=== PATIENT | female | born 2000 | race Caucasian/White ===

== ENCOUNTER 2022-07-27 13:10 | Outpatient (CLI) | payer BC, SELFPAY ==
--- NOTE | ~2022-07-27 | XR_ITS ---
EXAMINATION: XR sinus min 3V INDICATION: Chronic nasal congestion TECHNIQUE: Four views of the paranasal sinuses are obtained on five radiographs COMPARISON: None available FINDINGS: The paranasal sinuses are well pneumatized. There is mild rightward deviation of the nasal septum. There appears to be minimal opacification of the right maxillary sinus. The facial bones are unremarkable. IMPRESSION: 1. Possible right maxillary sinusitis. Consider further evaluation with sinus CT if there is high hig h suspicion for clinically significant sinusitis. Reviewed, dictated and finalized at location L. TORCH OPERATOR IMPRESSION: 1. Possible right maxillary sinusitis. Consider further evaluation with sinus C T if there is high high suspicion for clinically significant sinusitis.
--- NOTE | ~2022-07-27 | XR_ITS ---
Clinical Indication: Chronic congestion, chest pain PA and lateral views of the chest: Comparison: None Findings: The lungs are clear, without evidence of focal consolidation or pleural effusion. Cardiome diastinal silhouette is within normal limits. Bones and soft tissues are unremarkable. Impression: Normal chest. Reviewed, dictated and finalized at [facility]. LAY DECORATOR Impression: Normal chest.
== END 2022-07-27 13:11 | disposition home or self-care (01) ==
PROVIDERS: PCP Internal Medicine; Visit Provider Internal Medicine
DX: R09.81 Nasal congestion (principal)
CPT/HCPCS: 70220; 71046

== ENCOUNTER 2022-09-14 13:51 | Outpatient (CLI) | payer BC, SELFPAY ==
--- NOTE | ~2022-09-14 | CT_ITS ---
EXAMINATION: CT sinus wo con DATE: 09/14/2022 14:13 INDICATION: Chronic sinusitis, nasal congestion TECHNIQUE: Computed tomography (CT) of the paranasal sinuses was performed without contrast. Iterativ e reconstruction technique was employed. Exam dose: 250.27 mGy-cm total exam DLP. COMPARISON: None FINDINGS: There is mild leftward bowing of the anterior nasal septum and moderate rightward bowing of the posterior aspect of the nasal septum. Diffuse moderately prominent asymmetric soft tissue swelling of the right middle and inferior nasal t urbinates. There is intralamellar cell of both middle nasal turbinates, more prominent on the right. There is mild soft tissue thickening at the right maxillary ostium and infundibulum. The left ostiome atal unit is patent. There is focal right frontal ethmoid soft tissue thickening. Mild patchy soft tissue thickening of th e right ethmoid air cells. There is focal mild mucoperiosteal thickening of the right sphenoid and bi lateral maxillary sinuses, most prominent at the right maxillary sinus. The mastoid air cells are normally developed and aerated. IMPRESSION: Nasal septum bowing Mild soft tissue thickening at the right maxillary ostium and right infundibulum Mild mucoperiosteal thickening of the right frontoethmoid area, right ethmoid, right sphenoid and macho ateral maxillary sinuses Reviewed, dictated and finalized at Location [facility]. Reviewed, dictated and finalized at location L. IMPRESSION: Nasal septum bowing Mild soft tissue thickening at the right maxillary ostium and right infundibulu m Mild mucoperiosteal thickening of the right frontoethmoid area, right ethmoid, right sphenoid and bilateral maxillary sinuses
== END 2022-09-14 13:52 | disposition home or self-care (01) ==
LOC: CHSIMG 13:52
PROVIDERS: PCP Internal Medicine; Visit Provider Nurse Practitioner Family
DX: J32.9 Chronic sinusitis, unspecified (principal); J34.2 Deviated nasal septum
CPT/HCPCS: 70486

== ENCOUNTER 2025-01-17 15:58 | Outpatient (CLI) | payer OTHER, SELFPAY ==
--- OUTSIDE RECORDS SUMMARY | 2025-01-17 16:06 | XMS_ITS | Clinical Summary ---
[facility] Address [address] [place] [place] [address] Care Team Providers Care Port Warden Name Role Phone Devaughn Brown MD Primary Care Provider [phone] Allergies Active Allergy Reactions Criticality Noted Date Comments Penicillins Other (See comments) Low 03/10/2023 Unknown reactions Medications fexofenadine HCl (SUGEY ORAL) Take by mouth Active albuterol HFA (PROVENTIL HFA,VENTOLIN HFA,PROAIR HFA) 90 mcg/actuation inhaler 05/14/20 23 Active FLUoxetine (PROzac) 20 mg tablet Take 1 tablet (20 mg total) by mouth daily Active Nystop powder Apply topically 2 (two) times a day 06/27/19 25 Active fluconazole (DIFLUCAN) 100 mg tablet 07/25/19 25 Active hydrocortisone (ANUSOL-HC) 25 mg suppository Insert 1 suppository (25 mg total) into the rectum 2 (two) times a day 24 suppository 08/03/19 25 Active norgestimate-et hinyl estradioL (Estarylla) 0.25-35 mg-mcg per tablet TAKE 1 TABLET BY MOUTH DAILY 84 tablet 2 09/14/19 25 Active Active Problems Problem Noted Date Diagnosed Date Anal fissure 08/05/2024 Assessment & Plan (08/05/2024 11:58 AM BIOLOGY RESEARCH ASSISTANT): Recommend fiber supplement such as Metamucil or Citrucel 2 tsp once daily. Anusol-HC hydrocortisone suppository twice a day for 12 days. Consider formulated neomycin hydrocortisone if needed. Also abnormal skin findings in the perineum suggest dermatology referral. Rectal bleeding 08/03/2024 Assessment & Plan (08/05/2024 11:58 AM BIOLOGY RESEARCH ASSISTANT): Based upon the painful bowel movements and small anal fissure seen I suspect this is the cause. Will treat with a combination of a fiber supplement, Sitz baths, hydrocortisone suppository. Also due to the bleeding findings recommend colonoscopy to exclude other causes. 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 We had been talking for appromately 20 minutes about control options, more specifically the IUD. I was talking to her about the procedure and then I stood up and said, I will go get some literature on the different IUDs for you to take home to review. At that time patient responded, o k , and proceeded to take a drink of water. As I was walking toward the door I heard water spilling onto the floor I turned around and patient was still sitting on the bed upright at this time and her water was spilling on the floor it was apparent she did not realize she was feeling the water so I went to walk toward her to see what is wrong and at the same time the patient then fell over towards the left side of the end of the exam table and directly onto the floor. The exam table was in the lowest position, and there is approximately 2 feet of space between the bed and the floor. Her knees both hit the floor at the same time and then she continued to fall forward hitting the top of her head on the floor in front of the trash can. At that time I went to the door and asked for someone to come in to help, when I turned around to assist the patient she was already standing back up to sit on the bed. Patient was flush/pale to the face and lips, but was not diaphoretic. No nausea or vomitting. A&O x 4. Patient was monitored by me and my infertility medical assistant for the next 15 minutes. No changes in neurological status. No contusion to face/head noted. Stated she does get s queemish at times talking about certain things - I am assuming bodily functions, blood, etc. as she did not elaborate. Denies headache of vision disturbance. At the end of the 15 minute monitoring patient states she felt fine and ambulated without the need of assistance to leave to go home. States she remembers feeling faint, but does not remember falling to the floor, but does remember getting up from the floor and all events that followed. Contraceptive management 07/10/2024 Assessment & Plan (07/10/2024 2:26 PM BIOLOGY RESEARCH ASSISTANT): Discussed all control options available to patient at visit. Patient was counseled on benefits as well as side effects and risks of each method. We spent most of our time discussing LARCs, both Nexplanon and hormonal IUD. Aide, Jennifer, and Yohan discussed and literature given for patient to review at home. Kyleena and Liletta are smaller devices with the same efficacy against that I feel would both work well for her. I would recommend she have a pelvic ultrasound to check the uterus to make sure there is adequate space for IUD prior to insertion. For now, Hope will continue on her oral contraceptive pill and call the office if she decides on switching to a LARC. Depression with anxiety 07/07/2023 Immunizations Immunization Administration Dates Next Due Influenza, Unspecified 04/28/2013 Pfizer SARS-CoV-2 Monovalent Vaccination (12+ Yrs) PURPLE 07/14/2021,10/09/2020,09/18/2020 Surgical History Surgery Date Site/Laterality Comments APPENDECTOMY TONSILLECTOMY Medical History Medical History Date Comments Allergies Asthma Family History Medical History Relation Name Comments No Known Problems Father Heart disease Maternal Grandmother No Known Problems Mother Relation Name Status Comments Father Maternal Grandmother Mother Other Social History Tobacco Use Types Packs/Day Years Used Date Smoking Tobacco: Never Smokeless Tobacco: Never Tobacco Cessation:Counseling Given: Not Answered Humiliation, Afraid, Rape, and Kick questionnair e Answer Date Recorded Within the last year, have y ou been afraid of your partner or ex-partner? No 07/07/2023 Within the last year, have y ou been humiliated or emotionally abused in other ways by your partner or ex-partner? No Within the last year, have y ou been kicked, hit, slapped, or otherwise physically hurt by your partner or ex-partner? No 07/07/2023 Within the last year, have y ou been raped or forced to have any kind of sexual activity by your partner or ex-partner? No 07/07/2023 AUDIT-C Answer Date Recorded Q1: How often do you have a drink containing alc ohol? Monthly or less 07/07/2023 Q2: How many drinks containi ng alcohol do you have on a typical day when you are drinking? 3 or 4 07/07/2023 Q3: How often do you have si x or more drinks on one occasion? Never 07/07/2023 PHQ-2 Answer Date Recorded PHQ-2 Total Score (If total score is 3 or more points, staff should administer the PHQ-9) 0 07/07/2023 Comments Unknown Sex and Gender Information Value Date Recorded Sex Assigned at Not on file Legal Sex Female 4:47 AM BIOLOGY RESEARCH ASSISTANT Gender Identity Not on file Sexual Orientation Not on file Obstetrics History Para Term AB IAB SAB Ectopic Multiple Livin g Live Births 0 0 0 0 0 0 0 0 0 0 0 Last Filed Vital Signs Vital Sign Reading Time Taken Comments Blood Pressure 127/82 08/03/2024 2:23 PM BIOLOGY RESEARCH ASSISTANT Pulse 65 08/03/2024 2:23 PM BIOLOGY RESEARCH ASSISTANT Temperature 36.6 C (97.8 F) 03/10/2023 2:07 PM CDT Respiratory Rate - - Oxygen Saturation 97% 08/03/2024 2:23 PM BIOLOGY RESEARCH ASSISTANT Inhaled Oxygen Concentration - - Weight 83.9 kg (185 lb) 08/03/2024 2:23 PM BIOLOGY RESEARCH ASSISTANT Height 157.5 cm (5' 2) 08/03/2024 2:23 PM BIOLOGY RESEARCH ASSISTANT Body Mass Index 33.84 08/03/2024 2:23 PM BIOLOGY RESEARCH ASSISTANT Plan of Treatment Health Maintenance Due Date Last Done Comments Hepatitis C Screening 1999 DTaP/Tdap/Td Vaccine (1 - Tdap) 12/26/2010 Varicella Vaccines (1 of 2 - 13+ 2-dose series) 12/26/2012 HPV Vaccines (1 - 3-dose series) 12/26/2014 Hepatitis B Screening 12/26/2017 Covid-19 Vaccine (2023-2 5 season) 2024 07/14/2021, 10/09/2020, 09/18/2020 Cervical Cancer Screening 07/07/2024 07/07/2023 Depression Screening 07/07/2024 07/07/2023 Regular Well Visit/Exam 18-64 07/07/2024 07/07/2023 Influenza Vaccine (#1) 2025 04/28/2013 Pneumococcal vaccine <65 Aged Out No longer eligible based on patient's age to complete this topic Procedures Procedure Name Priority Date/Time Associated Diagnosis Comments PAP, REFLEX HPV Routine 07/07/2023 1:15 PM BIOLOGY RESEARCH ASSISTANT Well woman exam with routine gynecological exam from Last 3 Months or Most Recently Relevant to Health Maintenance Results * Pap, reflex HPV (07/07/2023 1:15 PM BIOLOGY RESEARCH ASSISTANT) CLINICAL INFORMATION: Adolfo Kidd Comment:WWE LMP Adolfo Kidd Comment:06/23/2023 Previous Pap Adolfo Kidd Comment:NONE GIVEN Prev. Bx Adolfo Kidd Comment:NONE GIVEN SOURCE: Adolfo Kidd Comment:Cervix, Endocervix Pap, specimen adequacy Adolfo Kidd Comment: Satisfactory for evaluation. Endocervical/transformation zone component present. HPV interp Adolfo Kidd Comment: Cytology Results: Negative for intraepithelial lesion or malignancy. COMMENTS Adolfo Kidd Comment: This Pap test has been evaluated with computer assisted technology. Medical Claims Analyst Reji Raya Comment: STACY CAMEJO(ASCP) CT Screening Location: [place] [address] [place] [address] Comment Adolfo Kidd Comment: EXPLANATORY NOTE: The Pap is a screening test for cervical cancer. It is not a diagnostic test and is subject to false negative and false positive results. It is most reliable when a satisfactory sample, regularly obtained, is submitted with relevant clinical findings and history, and when the Pap result is evaluated along with historic and current clinical information. Thin prep 07/07/2023 1:15 PM BIOLOGY RESEARCH ASSISTANT 07/08/2023 4:10 AM BIOLOGY RESEARCH ASSISTANT us Katia Urbina NP LAB CYTOLOGY ORDERABLES [facility] [address] [place] [address] from Last 3 Months or Most Recently Relevant to Health Maintenance Insurance [facility] H[facility]/PPO Address: [facility] [id number] [place] [id number] Care Teams Port Warden Relationship Specialty Start Date End Date Devaughn Brown MD PCP - General Internal Medicine 09/15/22
--- OUTSIDE RECORDS SUMMARY | 2025-01-17 16:06 | XMS_ITS | Referral Summary ---
Author Organization [facility] C Address [address] [place] [address] Care Team Providers Care Bead Worker Sewing Name Role Phone Devaughn Brown MD Primary Care Provider [phone] Allergies Active Allergy Reactions Criticality Noted Date [...] 08/05/2024 Assessment & Plan (08/05/2024 11:58 AM RADIOLOGIC TECHNOLOGIST MAMMOGRAM): Recommend fiber supplement such as Metamucil or Citrucel 2 tsp once daily. Anusol-HC hydrocortisone suppository twice a day for 12 days. Consider formulated neomycin hydrocortisone if needed. Also abnormal skin findings in the perineum suggest dermatology referral. Rectal bleeding 08/03/2024 Assessment & Plan (08/05/2024 11:58 AM RADIOLOGIC TECHNOLOGIST MAMMOGRAM): Based upon the painful bowel movements and small anal fissure seen I suspect this is the cause. Will treat with a combination of a fiber supplement, Sitz baths, hydrocortisone suppository. Also due to the bleeding findings recommend colonoscopy to exclude other causes. 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 No changes [...] 07/10/2024 Assessment & Plan (07/10/2024 2:26 PM RADIOLOGIC TECHNOLOGIST MAMMOGRAM): Discussed all control options available to patient [...] SARS-CoV-2 Monovalent Vaccination (12+ Yrs) PURPLE 07/14/2021,10/09/2020,09/18/2020 Social History Tobacco Use Types Packs/Day Years [...] on file Legal Sex Female 4:47 AM RADIOLOGIC TECHNOLOGIST MAMMOGRAM Gender Identity Not on file Sexual Orientation Not on file Last Filed Vital Signs Vital Sign Reading Time Taken Comments Blood Pressure 127/82 08/03/2024 2:23 PM RADIOLOGIC TECHNOLOGIST MAMMOGRAM Pulse 65 08/03/2024 2:23 PM RADIOLOGIC TECHNOLOGIST MAMMOGRAM Temperature 36.6 C (97.8 F) 03/10/2023 2:07 PM CDT Respiratory Rate - - Oxygen Saturation 97% 08/03/2024 2:23 PM RADIOLOGIC TECHNOLOGIST MAMMOGRAM Inhaled Oxygen Concentration - - Weight 83.9 kg (185 lb) 08/03/2024 2:23 PM RADIOLOGIC TECHNOLOGIST MAMMOGRAM Height 157.5 cm (5' 2) 08/03/2024 2:23 PM RADIOLOGIC TECHNOLOGIST MAMMOGRAM Body Mass Index 33.84 08/03/2024 2:23 PM RADIOLOGIC TECHNOLOGIST MAMMOGRAM Plan of Treatment Not on file Procedures Procedure Name Priority Date/Time Associated Diagnosis Comments PAP, REFLEX HPV Routine 07/07/2023 1:15 PM RADIOLOGIC TECHNOLOGIST MAMMOGRAM Well woman exam with routine gynecological exam from Last 3 Months or Most Recently Relevant to Health Maintenance Results * Pap, reflex HPV (07/07/2023 1:15 PM RADIOLOGIC TECHNOLOGIST MAMMOGRAM) CLINICAL INFORMATION: Adolfo Kidd Comment:WWE LMP Adolfo Kidd Comment:06/23/2023 Previous Pap Adlofo Kidd Comment:NONE GIVEN Prev. Bx Adolfo Kidd Comment:NONE GIVEN SOURCE: Adolfo Kidd Comment:Cervix, Endocervix Pap, specimen adequacy Adolfo Kidd Comment: Satisfactory for evaluation. Endocervical/transformation zone component present. HPV interp Adolfo Kidd Comment: Cytology Results: Negative for intraepithelial lesion or malignancy. COMMENTS Adolfo Kidd Comment: This Pap test has been evaluated with computer assisted technology. Home Based Assistant Reji Raya Comment: STACY CAMEJO(ASCP) CT Screening Location: [place] [address] [address] [place] [address] Comment Adolfo Kidd Comment: EXPLANATORY NOTE: The [...] clinical information. Thin prep 07/07/2023 1:15 PM RADIOLOGIC TECHNOLOGIST MAMMOGRAM 07/08/2023 4:10 AM RADIOLOGIC TECHNOLOGIST MAMMOGRAM us Katia Urbina NP LAB CYTOLOGY ORDERABLES Final Re sult [place] [address] [address] [place] [phone] from Last 3 Months or Most Recently Relevant to Health Maintenance Insurance [facility] H[facility]/PPO Address: [facility] [address] [place] [address] Care Teams Bead Worker Sewing Relationship Specialty Start Date End Date Devaguhn Brown MD PCP - General Internal Medicine 09/15/22
--- OUTSIDE RECORDS SUMMARY | 2025-01-17 16:06 | XMS_ITS | Clinical Summary ---
Author Organization [facility] Address [address] [place] [address] Care Team Providers Care Drum Sander Setter Name Role Phone Devaughn Brown MD Primary Care Provider [phone] Source Comments [facility],non-owned Affiliates and Associated Physician Practices is amultiple site organization consisting of ambulatory clinics and hospital sitesin [place], [place], [place] and [place]. This disclosure is being madepursuant to the Care Everywhere program and may not contain all information available regarding this patient. Last updated 18.[facility] Allergies No known active allergies Medications * Be aware that medications may not be up to date on this document. Alwaysverify current medications with the patient. fluticasone propionate (FLONASE) 50 MCG/ACT nasal spray Brumley 1 Brumley into each nostril 2 times daily. Active cetirizine (ZYRTEC) 10 MG tablet Take 10 mg by mouth once daily. Active hydrocodone-thomas taminophen (NORCO) 5-325 MG tablet Take 1 Tab by mouth every 6 hours as needed for Pain. 25 Tab 0 04/28/2013 Active ibuprofen (MOTRIN) 200 MG tablet Take 2 Tabs by mouth every 6 hours as needed for Pain. 30 Tab 0 04/28/2013 Active docusate sodium (COLACE) 100 MG capsule Take 1 Cap by mouth once daily. 30 Cap 1 04/28/2013 Active polyethylene glycol 3350 (MIRALAX) packet Take 17 g by mouth once daily as needed for Constipation . 30 Packet 1 04/28/2013 Active Active Problems No known active problems Immunizations Immunization Administration Dates Next Due INFLUENZA VACCINE 04/28/2013 Social History Tobacco Use Types Packs/Day Years Used Date Smoking Tobacco: Never Alcohol Use Standard Drinks/Week Comments No 0 (1 standard drink = 0.6 oz pur e alcohol) Comments Unknown Sex and Gender Information Value Date Recorded Sex Assigned at Not on file Legal Sex Female 6:47 PM GIS DEVELOPER Gender Identity Not on file Sexual Orientation Not on file Last Filed Vital Signs Vital Sign Reading Time Taken Comments Blood Pressure 104/60 04/28/2013 7:45 AM GIS DEVELOPER Pulse 80 04/28/2013 7:45 AM GIS DEVELOPER Temperature 37.2 C (99 F) 04/28/2013 7:45 AM GIS DEVELOPER Respiratory Rate 16 04/28/2013 7:45 AM GIS DEVELOPER Oxygen Saturation 95% 04/27/2013 3:45 PM GIS DEVELOPER Inhaled Oxygen Concentration - - Weight 57.5 kg (126 lb 12.2 oz) 04/27/2013 6:10 PM GIS DEVELOPER Height 159.5 cm (5' 2.8) 04/26/2013 11 :45 PM GIS DEVELOPER Body Mass Index 22.6 04/26/2013 11:45 PM GIS DEVELOPER Plan of Treatment Health Maintenance Due Date Last Done Comments HIV SCREENING 12/26/2014 HPV VACCINE (1 - 3-dose series) 12/26/2014 CHLAMYDIA/GONORRHEA SCREENING 2015 HEPATITIS C SCREENING 12/22/2017 DTAP/TDAP/TD VACCINES (1 - Tdap) 12/26/2018 HEPATITIS B VACCINE (1 of 3 - 19+ 3-dose series) 12/26/2018 COVID-19 VACCINE (1 - 2023-2 5 season) 2024 DEPRESSION SCREENING 06/20/2024 INFLUENZA VACCINE (#1) 2025 04/28/2013 ZOSTER VACCINE (1 of 2) 12/26/2049 HIB VACCINE Aged Out No longer eligi ble based on patient's age to complete this topic MENINGOCOCCAL (Group B) VACC INE SHARED DECISION-MAKING Aged Out No longer eligibl e based on patient's age to complete this topic MENINGOCOCCAL GROUPS A/C/Y/W VACCINE Aged Out No longer eligible b ased on patient's age to complete this topic PNEUMOCOCCAL VACCINE Aged Out No long er eligible based on patient's age to complete this topic Insurance [facility] Care Teams Drum Sander Setter Relationship Specialty Start Date End Date Devaughn Brown MD [address] [place] [phone] PCP - General Internal Medicine 04/26/13
--- OUTSIDE RECORDS SUMMARY | 2025-01-17 16:07 | XMS_ITS | Patient Health Record ---
Author Organization [facility] As [facility] Address [address] [place] [address] Care Team Providers Care Licensed Clinical Psychologist Name Role Phone Aries Blackmon Unavailable [phone] Reason For Referral No Information Medications Medication SIG (Take, Route, Frequency, Duration) Notes Start Date End Date Status ProAir HFA 108 (90 Base) MCG/ACT Inhalation 07/14/2023 Active Trixie 0.25-35 mg-mcg ORAL 07/14/2023 Active Azithromycin 250 MG Oral 07/14/2023 Active FLUoxetine HCl 20 MG Oral 07/14/2023 Active Insulin Syringe 1 mL 31 gaug e x 5/16 MISCELLANEOUS 07/14/2023 Active methylPREDNISolone 4 MG Oral 07/14/2023 Active Plan Of Treatment No Information Insurance Providers Payer Name Payer Address Payer Phone Subscriber Number Group Number Insured Name Patient Relationship to Insured Coverage Start Date Coverage End Date [facility] [id number] [place] [phone] [id number] GAGE ARORA Self - patient is the insured Medical (General) History Surgical History Surgery Date(Month/Year) Appendectomy (69259) Tonsilectomy/adenoids 11/29/2017 Any surgical history 11/29/2017 Other 05/24/2014
[2025-01-19 17:26] LABS: TB Skin Test Site Left Arm
[2025-01-19 17:27] LABS: TB Skin Test Erythema 0 mm; TB Skin Test Induration 0 mm (0-10); TB Skin Test Interpretation Negative (Negative)
== END 2025-01-17 15:59 | disposition home or self-care (01) ==
LOC: CHSLAB 16:04
PROVIDERS: PCP Internal Medicine; Visit Provider Internal Medicine
DX: Z11.1 Encounter for screening for respiratory tuberculosis (principal)
CPT/HCPCS: 36415; 86580